=== PATIENT | male | born 1990 | race Two or more races ===

== ENCOUNTER → 2016-10-02 | Outpatient (REF) | payer BC, SELFPAY | LOC: M LAB REF 11:29 | PROVIDERS: ATTEND Dermatology | DX: D49.2 Neoplasm of unspecified behavior of bone, soft tissue, and skin (principal) ==

== ENCOUNTER 2017-01-29 14:39 | Emergency (ER) | payer BC ==
[~2017-01-29] VITALS: Ht 185.4 cm; Wt 109.1 kg
[2017-01-29] MEDS ORDERED: VENTAER (14:45)
[2017-01-29] MEDS ORDERED: MONT10TA2 (14:45)
[2017-01-29] MEDS ORDERED: ADVA230A (14:45)
--- NOTE | 2017-01-29 15:48 | REP ---
PA and lateral chest: Comparisons 12/17/2009. The lung gutierrez are clear. The cardiac size is normal The mateus, mediastinum, and bony thorax are unremarkable. Impression: Negative PA and lateral chest. There is no interval change. Signed by Troy Pyle MD 01/29/2017 03:40 P
[2017-01-29] MEDS ORDERED: IPRATROPIUM 0.5MG/ALBUTEROL 2.5MG INH SOL UD 3ML (DUONEB)(J7620) NEB ONE (17:00)
[2017-01-29 17:59] VITALS: O2SAT 100
[2017-01-29] MEDS ORDERED: PRED20TA PO (18:04)
[2017-01-29 18:17] VITALS: BP 137/79
== END 2017-01-29 18:17 | disposition home or self-care (01) ==
LOC: M ED 14:39
DX: J45.901 Unspecified asthma with (acute) exacerbation (principal); Z88.2 Allergy status to sulfonamides; Z91.010 Allergy to peanuts

== ENCOUNTER → 2017-05-09 | Outpatient (CLI) | payer BC | LOC: M SLEEP HO 14:57 | DX: G47.30 Sleep apnea, unspecified (principal) | CPT/HCPCS: G0399 ==

== ENCOUNTER → 2017-06-01 | Outpatient (CLI) | payer BC ==
[2017-06-01 13:27] LABS: BASO % 0.3 % (0.0-1.0); EOS # 0.1 10^3/uL (0.0-0.50); EOS % 1.3 % (0.0-3.0); HEMATOCRIT 43.4 % (42.0-52.0); IMMATURE GRANULOCYTE % 0.2 % (0-3.0); LYMPH # 2.6 10^3/uL (1.5-6.5); LYMPH % 40.2 % (24.0-44.0); MEAN CORPUSCULAR HEMOGLOBIN 33.6 pg (27.0-33.0); MEAN CORPUSCULAR HGB CONC 34.6 g/dl (32.0-36.5); MEAN CORPUSCULAR VOLUME 97.1 fl (80.0-96.0); MONO # 0.6 10^3/uL (0.0-0.8); MONO % 8.7 % (0.0-5.0); NEUTROPHILS # 3.1 10^3/uL (1.8-7.7); NEUTROPHILS % 49.3 % (36.0-66.0); PLATELET COUNT, AUTOMATED 259 10^3/uL (150-450); RED BLOOD COUNT 4.47 10^6/uL (4.30-6.10); RED CELL DISTRIBUTION WIDTH 12.6 % (11.5-14.5); WHITE BLOOD COUNT 6.3 10^3/uL (4.0-10.0)
== END ==
LOC: M SMT 10:17
DX: J45.40 Moderate persistent asthma, uncomplicated (principal)
CPT/HCPCS: 82785

== ENCOUNTER → 2018-03-26 | Outpatient (REF) | payer BC ==
[~2018-03-26] MED LIST: ADVA230A; MONT10TA2; PRED20TA PO; VENTAER
== END ==
LOC: M LAB REF 13:44
PROVIDERS: ATTEND Nurse Practitioner Adult Health
DX: J45.40 Moderate persistent asthma, uncomplicated (principal)

== ENCOUNTER → 2018-05-07 | Outpatient (CLI) | payer BC ==
--- NOTE | 2018-05-08 03:38 | REP ---
Clinical: Cough and history of persistent asthma . Comparison: 01/29/2017 . Technique: PA and lateral. Findings: The mediastinum and cardiac silhouette are normal. The lung gutierrez are clear and without acute consolidation, effusion, or pneumothorax. The skeletal structures are intact and normal. Impression: 1. No acute cardiopulmonary process. Electronically Signed by Mauro Blackwood MD 05/08/2018 03:30 A
== END ==
LOC: M SMT 09:31
PROVIDERS: ATTEND Nurse Practitioner Adult Health
DX: R05 Cough (principal); J45.40 Moderate persistent asthma, uncomplicated

== ENCOUNTER 2018-06-15 22:41 | Emergency (ER) | payer BC ==
[~2018-06-15] VITALS: Ht 185.4 cm; Wt 109.8 kg
[2018-06-15] MEDS ORDERED: diphenhydrAMINE INJ 50MG/ML VIAL (J1200) IV STA (22:50)
[2018-06-15] MEDS ORDERED: dexameTHASONE 20 MG/5 ML VIAL (J1100) IV ONE (23:00)
[2018-06-15 23:15] VITALS: BP 126/79
== END 2018-06-15 23:35 | disposition home or self-care (01) ==
LOC: M ED 22:41
DX: Z04.89 Encounter for examination and observation for other specified reasons (principal); J45.909 Unspecified asthma, uncomplicated; Z91.010 Allergy to peanuts; Z88.1 Allergy status to other antibiotic agents; Z88.2 Allergy status to sulfonamides
CPT/HCPCS: 96374; 96375; 99284; J1100; J1200

== ENCOUNTER → 2018-07-30 | Outpatient (REF) | payer BC | LOC: M LAB REF 17:33 | PROVIDERS: ATTEND Nurse Practitioner Adult Health | DX: J45.41 Moderate persistent asthma with (acute) exacerbation (principal) ==

== ENCOUNTER → 2018-12-23 | Outpatient (CLI) | payer BC, OTHER ==
--- NOTE | 2018-12-23 11:12 | REP ---
Click two-view chest: 12/23/2018. Indication: Chest pain. Comparison: 05/07/2018. Findings: The lungs are clear. There is no pleural effusion or pneumothorax. The cardiomediastinal silhouette is unremarkable. Impression: Clear lungs. Electronically Signed by Roly Smith DO 12/23/2018 11:04 A
[2018-12-23 14:02] LABS: MONO SCRN NEGATIVE (NEGATIVE)
[2018-12-23 14:08] LABS: LIPASE 207 U/L (73-393)
== END ==
LOC: M WUC 09:24
PROVIDERS: ATTEND Registered Nurse
DX: R10.12 Left upper quadrant pain (principal); R53.83 Other fatigue

== ENCOUNTER → 2020-10-29 | Outpatient (REF) | payer BC ==
[~2020-10-29] MED LIST changes: +MONT10TA10; -MONT10TA2
[2020-11-01 16:08] LABS: Lyme Disease IgG/IgM Antibodie <0.91 ISR (0.00-0.90); Lyme Disease IgM Ab Quantitati <0.80 index (0.00-0.79)
== END ==
LOC: M LAB REF 16:19
PROVIDERS: ATTEND Physician Assistant Medical
DX: M25.59 Pain in other specified joint (principal); R53.83 Other fatigue

== ENCOUNTER → 2020-11-10 | Outpatient (CLI) | payer BC, OTHER ==
--- NOTE | 2020-11-10 14:44 | REP ---
INDICATION: ENLARGED THYROID. COMPARISON: None. TECHNIQUE: High-resolution bilateral thyroid sonography. FINDINGS: Thyroid isthmus is 0.3 cm in thickness. Right lobe dimensions by ultrasound are 6.2 x 1.8 x 1.1 cm. The left lobe measures 4.9 x 1.8 x 1.2 cm. Thyroid parenchyma is homogeneous bilaterally. No cyst, nodule, mass, or adenopathy is seen. IMPRESSION: Negative thyroid sonography. <Electronically signed by Gurpreet Dobson > 11/10/20 [id number]
== END ==
LOC: M RAD 14:09
PROVIDERS: ATTEND Physician Assistant Medical
DX: E04.9 Nontoxic goiter, unspecified (principal)

== ENCOUNTER → 2020-11-25 | Outpatient (CLI) | payer OTHER ==
--- NOTE | 2020-11-25 13:34 | REP ---
INDICATION: LBP. Repeat dictation. Preliminary report is provided at the time of the exam by sammie HILL. COMPARISON: Comparison MRI study of the lumbar spine is from February 02, 2011. Comparison is also made with multiplanar re-formation images from CT study of the abdomen January 03, 2019. TECHNIQUE: Sagittal and axial T1 and T2-weighted scans are acquired in the usual fashion with and without fat saturation. Sequences include spin echo, turbo spin-echo, and STIR imaging sequences. FINDINGS: Lumbar vertebral body heights are preserved. No bony destructive lesion is seen. The tip of the conus medullaris is normal in position and appearance at the T12 level. No extra vertebral abnormality is observed. There are bilateral pars interarticularis defects at L5. There is a very subtle, grade 1, 3 mm L5-S1 spondylolisthesis. This is unchanged. Axial and sagittal images at the L5-S1 disc level demonstrate mild central disc bulging. Minimal facet hypertrophy is present bilaterally. No neural foraminal narrowing or central canal stenosis is seen. At L4-5, axial and sagittal images demonstrate degenerative disc narrowing and some decreased disc space signal intensity on T2 weighted scans. There is diffuse disc bulging. Minimal facet hypertrophy is present bilaterally at L4-5. No spinal stenosis is seen. No nerve root compression is appreciated. The L3-4, L2-3, and L1-2 disc margins are unremarkable. IMPRESSION: 1. Bilateral L5 spondylolysis with a 3 mm grade 1 subtle L5-S1 spondylolisthesis. 2. Diffuse disc bulging centrally L4-5 and L5-S1. Mild facet hypertrophy bilaterally at these 2 levels. Otherwise negative. <Electronically signed by Gurpreet Dobson > 11/25/20 [id number]
== END ==
LOC: M PLAIMG 07:54
PROVIDERS: ATTEND Chiropractor
DX: M47.816 Spondylosis without myelopathy or radiculopathy, lumbar region (principal); M43.17 Spondylolisthesis, lumbosacral region; M99.03 Segmental and somatic dysfunction of lumbar region

== ENCOUNTER 2021-02-28 12:44 | Emergency (ER) | payer OTHER ==
[~2021-02-28] VITALS: Ht 185.4 cm; Wt 91.6 kg
[~2021-02-28 12:44] MED LIST changes: -MONT10TA10; +MONT10TA97
[2021-02-28 13:37] LABS: BASO % 0.3 % (0.0-1.0); EOS # 0.1 10^3/uL (0.0-0.5); HEMATOCRIT 42.5 % (42.0-52.0); HEMOGLOBIN 14.6 g/dl (13.5-17.5); LYMPH # 3.5 10^3/uL (1.5-5.0); LYMPH % 47.9 % (24.0-44.0); MEAN CORPUSCULAR HEMOGLOBIN 34.4 pg (27.0-33.0); MEAN CORPUSCULAR HGB CONC 34.4 g/dl (32.0-36.5); MEAN CORPUSCULAR VOLUME 100.2 fl (80.0-96.0); MONO # 0.6 10^3/uL (0.0-0.8); MONO % 8.7 % (2.0-8.0); NEUTROPHILS % 41.8 % (36.0-66.0); PLATELET COUNT, AUTOMATED 294 10^3/uL (150-450); RED BLOOD COUNT 4.24 10^6/uL (4.30-6.10); WHITE BLOOD COUNT 7.2 10^3/uL (4.0-10.0)
[2021-02-28 14:04] LABS: ALBUMIN 4.2 GM/DL (3.2-5.2); ALT/SGPT 21 U/L (12-78); BILIRUBIN,DIRECT 0.1 MG/DL (0.0-0.2); BILIRUBIN,TOTAL 0.4 MG/DL (0.2-1.0); BLOOD UREA NITROGEN 14 MG/DL (7-18); CALCIUM LEVEL 8.9 MG/DL (8.5-10.1); CARBON DIOXIDE LEVEL 29 MEQ/L (21-32); CHLORIDE LEVEL 106 MEQ/L (98-107); CREATININE FOR GFR 1.24 MG/DL (0.70-1.30); ETHYL ALCOHOL (ETHANOL) < 0.003 % (0.000-0.010); FREE T4 1.17 NG/DL (0.76-1.46); GLOMERULAR FILTRATION RATE > 60.0 (>60); GLUCOSE, FASTING 95 MG/DL (70-100); LIPASE 213 U/L (73-393); NT-PRO BNP 20 PG/ML (<125); SODIUM LEVEL 140 MEQ/L (136-145); TOTAL PROTEIN 7.5 GM/DL (6.4-8.2)
[2021-02-28 14:07] LABS: AMPHETAMINES LEVEL URINE NEGATIVE (NEGATIVE); BARBITURATES URINE NEGATIVE (NEGATIVE); BENZODIAZEPINES URINE NEGATIVE (NEGATIVE); CANNABINOIDS URINE NEGATIVE (NEGATIVE); COCAINE METABOLITE URINE NEGATIVE (NEGATIVE); METHADONE URINE NEGATIVE (NEGATIVE); OPIATES URINE NEGATIVE (NEGATIVE); PHENCYCLIDINE URINE NEGATIVE (NEGATIVE)
[2021-02-28] MEDS ORDERED: ISOVUE-370 76% 100ML VIAL As Ordered ONE (14:48)
[2021-02-28 14:59] LABS: C REACTIVE PROTEIN QUANTITATIV < 0.30 MG/DL (0.00-0.30)
[2021-02-28 15:09] LABS: ERYTHROCYTE SEDIMENTATION RATE 3 mm/hr (0-15)
[2021-02-28] MEDS ORDERED: holter monitor (16:35)
[2021-02-28 17:02] VITALS: BP 119/68
== END 2021-02-28 17:04 | disposition home or self-care (01) ==
LOC: M ED 12:44
DX: R07.89 Other chest pain (principal); R00.2 Palpitations; J45.909 Unspecified asthma, uncomplicated; Z79.899 Other long term (current) drug therapy; Z88.1 Allergy status to other antibiotic agents; Z88.2 Allergy status to sulfonamides; Z91.010 Allergy to peanuts; F12.20 Cannabis dependence, uncomplicated
CPT/HCPCS: 36415; 71046; 71275; 74177; 80048; 80076; 80307; 82077; 83690; 83880; 84439; 84443; 84484; 85025; 85379; 85652; 86140; 87040; 99284; Q9967

== ENCOUNTER → 2021-03-16 | Outpatient (CLI) | payer OTHER ==
[~2021-03-16] MED LIST changes: +holter monitor
== END ==
LOC: M EKG 11:28
PROVIDERS: ATTEND Internal Medicine
DX: R00.2 Palpitations (principal)

== ENCOUNTER → 2021-11-29 | Outpatient (CLI) | payer OTHER | LOC: M PLAIMG 14:58 | PROVIDERS: ATTEND Nurse Practitioner Adult Health | DX: J45.40 Moderate persistent asthma, uncomplicated (principal) ==

== ENCOUNTER → 2022-06-26 | Outpatient (REF) | payer BC | LOC: M LAB REF 16:31 | PROVIDERS: ATTEND Physician Assistant Medical | DX: R10.84 Generalized abdominal pain (principal) ==

== ENCOUNTER → 2022-06-26 | Outpatient (CLI) | payer OTHER | LOC: M WUC 13:44 | PROVIDERS: ATTEND Physician Assistant Medical | DX: M43.17 Spondylolisthesis, lumbosacral region (principal) ==

== ENCOUNTER 2022-07-04 10:12 | Emergency (ER) | payer BC ==
[~2022-07-04] VITALS: Ht 185.4 cm; Wt 89.4 kg
[2022-07-04 12:21] LABS: BASO % 0.3 % (0.0-1.0); EOS % 0.2 % (0.0-3.0); HEMATOCRIT 42.5 % (42.0-52.0); HEMOGLOBIN 14.9 g/dl (13.5-17.5); LYMPH # 1.6 10^3/uL (1.5-5.0); LYMPH % 26.3 % (24.0-44.0); MEAN CORPUSCULAR HGB CONC 35.1 g/dl (32.0-36.5); MONO # 0.5 10^3/uL (0.0-0.8); MONO % 8.3 % (2.0-8.0); NEUTROPHILS # 3.9 10^3/uL (1.5-8.5); NEUTROPHILS % 64.7 % (36.0-66.0); PLATELET COUNT, AUTOMATED 288 10^3/uL (150-450); RED BLOOD COUNT 4.38 10^6/uL (4.30-6.10)
[2022-07-04] MEDS ORDERED: KETOROLAC 30 MG/ML 1ML VIAL IV ONE (12:40)
[2022-07-04] MEDS ORDERED: NS 1,000 ML IV ONE (12:40)
[2022-07-04 13:06] LABS: LIPASE 38 U/L (12-53)
[2022-07-04 13:08] LABS: ALBUMIN 4.5 G/DL (3.2-5.2); ALKALINE PHOSPHATASE 54 U/L (46-116); ALT/SGPT 15 U/L (7.0-40); AST/SGOT 23 U/L (<34); BILIRUBIN,DIRECT 0.2 MG/DL (<0.4); BILIRUBIN,TOTAL 0.7 MG/DL (0.3-1.2); BLOOD UREA NITROGEN 8 MG/DL (9-23); CALCIUM LEVEL 9.4 MG/DL (8.5-10.1); CARBON DIOXIDE LEVEL 27 MMOL/L (20-31); CHLORIDE LEVEL 106 MMOL/L (98-107); CREATININE FOR GFR 0.91 MG/DL (0.70-1.30); GLOMERULAR FILTRATION RATE > 60.0 (>60); GLUCOSE, FASTING 110 MG/DL (60-100); POTASSIUM SERUM 4.3 MMOL/L (3.5-5.1); SODIUM LEVEL 140 MMOL/L (136-145); TOTAL PROTEIN 7.5 G/DL (5.7-8.2)
[2022-07-04] MEDS ORDERED: ISOVUE-370 76% 100ML VIAL As Ordered ONE (13:10)
[2022-07-04 13:46] LABS: APPEARANCE, URINE CLEAR (CLEAR); BACTERIA, URINE AUTO NEGATIVE (NEGATIVE); BILIRUBIN, URINE AUTO NEGATIVE (NEGATIVE); BLOOD, URINE BLOOD NEGATIVE (NEGATIVE); COLOR, URINE STRAW (YELLOW); GLUCOSE, URINE (UA) AUTO NEGATIVE (NEGATIVE); KETONE, URINE AUTO NEGATIVE (NEGATIVE); LEUKOCYTE ESTERASE, URINE AUTO NEGATIVE (NEGATIVE); NITRITE, URINE AUTO NEGATIVE (NEGATIVE); PROTEIN, URINE AUTO NEGATIVE (NEGATIVE); RBC, URINE AUTO 0 /HPF (0-3); SPECIFIC GRAVITY URINE AUTO 1.003 (1.002-1.035); SQUAMOUS EPITHELIAL CELL UR AU 0 /HPF (0-6); UROBILINOGEN, URINE AUTO 0.2 mg/dL (0.0-2.0); WBC, URINE AUTO 0 /HPF (0-3)
[2022-07-04] MEDS ORDERED: MIRA3350 PO (14:57)
[2022-07-04] MEDS ORDERED: HYDR50CA2 PO (14:57)
[2022-07-04 15:02] VITALS: BP 145/85
== END 2022-07-04 15:26 | disposition home or self-care (01) ==
LOC: M ED 10:12
DX: K59.00 Constipation, unspecified (principal); F32.A Depression, unspecified; F41.9 Anxiety disorder, unspecified; Z88.2 Allergy status to sulfonamides; Z91.010 Allergy to peanuts; Z79.52 Long term (current) use of systemic steroids; Z79.51 Long term (current) use of inhaled steroids; Z79.899 Other long term (current) drug therapy
CPT/HCPCS: 36415; 74177; 80048; 80076; 81001; 83690; 85025; 99283; Q9967

== ENCOUNTER 2022-10-20 08:58 | Day surgery (SDC) | payer BC ==
[~2022-10-20] VITALS: Ht 182.9 cm; Wt 83.5 kg
[~2022-10-20 08:58] MED LIST changes: +ALBU8.5H; +FLUT50SP17; +GABA-1171 PO; +HYDR50CA2 PO; +IBUP-1022; +MIRA3350 PO; +NS 1,000 ML IV ONE; +QVAR40AE12
[2022-10-20] MEDS ORDERED: GLYCOPYRROLATE INJ 0.2 MG/ML 2 ML VIAL As Ordered ONE (10:42)
[2022-10-20] MEDS ORDERED: propofoL 200 MG/20 ML VIAL As Ordered ONE ×2 (10:42→10:46)
[2022-10-20] MEDS ORDERED: LIDOCAINE 2% 100MG/5ML SDV (FOR ANES.) As Ordered ONE (10:42)
[2022-10-20 11:14] VITALS: BP 125/67; O2SAT 98
== END 2022-10-20 11:28 | disposition home or self-care (01) ==
LOC: M OPP 08:58
PROVIDERS: ATTEND Internal Medicine Gastroenterology
DX: K64.8 Other hemorrhoids (principal); K58.2 Mixed irritable bowel syndrome; K58.1 Irritable bowel syndrome with constipation; G47.33 Obstructive sleep apnea (adult) (pediatric); Z99.89 Dependence on other enabling machines and devices; Z79.1 Long term (current) use of non-steroidal anti-inflammatories (NSAID); Z79.51 Long term (current) use of inhaled steroids; Z88.2 Allergy status to sulfonamides; Z91.010 Allergy to peanuts

== ENCOUNTER → 2023-04-12 | Outpatient (REF) | payer BC, OTHER ==
[~2023-04-12] MED LIST changes: -FLUT50SP17; +FLUTISP; -NS 1,000 ML IV ONE
[2023-04-12 15:53] LABS: C REACTIVE PROTEIN QUANTITATIV < 0.40 MG/DL (<1.0)
[2023-04-12 16:00] LABS: THYROID PEROXIDASE ANTIBODY 41 U/ML (<60.0)
[2023-04-12 16:02] LABS: RHEUMATOID FACTOR QUANT < 3.5 IU/ML (<14)
[2023-04-16 16:11] LABS: ANCA-ATYPICAL <1:20 titer (Neg:<1:20); ANTINUCLEAR ANTIBODIES DIRECT Negative (Negative); CYTOPLASMIC NEUTROP AB ANCA-C <1:20 titer (Neg:<1:20); PERINUCLEAR AB ANCA-P <1:20 titer (Neg:<1:20)
== END ==
LOC: M LAB REF 12:39
PROVIDERS: ATTEND Physician Assistant Medical
DX: M25.50 Pain in unspecified joint (principal); R53.83 Other fatigue

== ENCOUNTER → 2023-08-22 | Outpatient (REF) | payer OTHER ==
[2023-08-28 02:47] LABS: TISSUE TRANSGLUTAMINASE IgA < 1.0 U/mL (<15.0)
== END ==
LOC: M LAB REF 16:34
PROVIDERS: ATTEND Physician Assistant Medical
DX: M25.50 Pain in unspecified joint (principal); R10.9 Unspecified abdominal pain

== ENCOUNTER → 2024-06-11 | Outpatient (REF) | payer OTHER | LOC: M LAB REF 09:14 | PROVIDERS: ATTEND Internal Medicine Gastroenterology | DX: R19.7 Diarrhea, unspecified (principal) ==

== ENCOUNTER → 2025-02-11 | Outpatient (REF) | payer OTHER, MEDICAID ==
[~2025-02-11] MED LIST changes: -IBUP-1022; +IBUP600T42
[2025-02-16 21:47] LABS: TESTOSTERONE FREE (DIRECT) 160.8 pg/mL (35.0-155.0); TESTOSTERONE TOTAL FOR T&D 816.0 ng/dL (250-1100)
== END ==
LOC: M LAB REF 12:02
PROVIDERS: ATTEND Physician Assistant Medical
DX: R20.0 Anesthesia of skin (principal); R53.83 Other fatigue; M25.50 Pain in unspecified joint; R68.82 Decreased libido